=== PATIENT | male | born 1990 | race Caucasian/White ===

== ENCOUNTER 2016-09-19 05:30 | Emergency (ER) | payer OTHER ==
[~2016-09-19] VITALS: Ht 170.2 cm; Wt 77.1 kg
[2016-09-19 05:35] VITALS: BP 150/89; PULSE 104; RESP 19; TEMP 97.9; O2SAT 99
[2016-09-19 05:45] VITALS: BP 150/89; PULSE 104; RESP 19; TEMP 97.9; O2SAT 99
[2016-09-19] MEDS ORDERED: LORA-258 PO (05:45)
== END 2016-09-19 05:45 ==
LOC: SED 05:30
DX: Z02.83 Encounter for blood-alcohol and blood-drug test (principal); F41.9 Anxiety disorder, unspecified
CPT/HCPCS: 99283